=== PATIENT | female | born 2000 | race Caucasian/White ===

== ENCOUNTER 2021-02-23 15:56 | Emergency (ER) | payer OTHER, SELFPAY ==
[2021-02-23 16:34] VITALS: BP 117/70; PULSE 101; RESP 18; TEMP 37; O2SAT 100; BMI 26.9
[2021-02-23 16:58] LABS: Appearance Urine HAZY; Color Urine YELLOW; Glucose Urine UA NEG (NEG); Leukocyte Esterase Urine 1+ (NEG); Nitrite Urine NEG (NEG); PH 6.5 (5.0-8.0); UACC Culture Trigger YES; Urine Blood NEG (NEG); Urine Ketones NEG (NEG); Urine Protein NEG (NEG-TRACE)
[2021-02-23 16:59] LABS: UPreg QC Valid YES; Urine Pregnancy NEGATIVE (NEGATIVE)
[2021-02-23 17:03] LABS: Amorphous Sediment Urine TRACE /LPF; Mucus Urine 1+ /LPF; Renal Epithelial Cells Urine 1+ /LPF; Squamous Epithelial Cell Urine 2+ /LPF
[2021-02-23 17:04] LABS: Bacteria Urine TRACE /LPF; RBC Urine 0 /HPF (0)
--- NOTE | 2021-02-23 17:25 | ED.BACK ---
HPI - Back Pain/Injury General Chief Complaint: Back Pain/Injury Stated Complaint: lower back pain Time Seen by Provider: 02/23/21 17:25 Related Data Allergies Allergy/AdvReac Type Severity Reaction Status Date / Time No Known Allergies Allergy Verified 02/23/21 16:33 Review of Systems Review of Systems: Constitutional : No Weight loss, No Fever, No Chills, No Night Sweats, No Fatigue, No Malaise ENT/Mouth : No Hearing loss, No Ear Pain, No Nasal Congestion, No Sinus Pain, No Hoarseness, No sore throat, No Rhinorrhea, No Swallowing Difficulty Eyes: No Eye Pain, No Swelling, No Redness, No Foreign Body, No Discharge, No Vision Changes Cardiovascular : No Chest Pain, No SOB, No Dyspnea on Exertion, No Orthopnea, No Edema, No Palpitations Respiratory : No Cough, No Sputum, No Wheezing, No Smoke Exposure, No Dyspnea Gastrointestinal : No Nausea, No Vomiting, No Diarrhea, No Constipation, No abdominal Pain, No Hematochezia, No Melena Genitourinary : no irregular bleeding, No Dysuria, No Urinary Frequency, No Hematuria, No Urinary Incontinence, No Urgency, No Flank Pain, No Urinary Flow Changes, No Hesitancy Musculoskeletal : No joint pain, Myalgias, No Joint Swelling Skin : No Skin Lesions, No rash Neuro : No Weakness, No Numbness, No Paresthesias, No Loss of Consciousness, No Dizziness, No Headache Psych : No Anxiety/Panic, No Depression, No SI/HI/AH/VH, No Social Issues, Yes all other systems are reviewed and are negative COUNT INCLUDES [facility] Social History Social History Patient : No Physical Exam Vital Signs: Vital Signs: Last Vital Signs Temp 98.6 F 02/23/21 16:34 Pulse 101 H 02/23/21 16:34 Resp 18 02/23/21 16:34 BP 117/70 02/23/21 16:34 Pulse Ox 100 02/23/21 16:34 Body Mass Index 26.9 MDM - Back Pain/Injury Lab Data Labs: Lab Results 02/23/21 02/23/21 Range/Units 16:50 16:50 Urine Color YELLOW Urine Appearance HAZY Urine pH 6.5 (5.0-8.0) Ur Specific [place] 1.010 (1.005-1.025) Urine Protein NEG (NEG-TRACE) MG/DL Urine Glucose (UA) NEG (NEG) MG/DL Urine Ketones NEG (NEG) MG/DL Urine Blood NEG (NEG) Urine Nitrite NEG (NEG) Ur Leukocyte Esterase 1+ H (NEG) Urine RBC 0 (0) /HPF Urine WBC 5-9 H (0-4) /HPF Ur Squamous Epith Cells 2+ /LPF Ur Renal Epithelial Cell 1+ /LPF Amorphous Sediment TRACE /LPF Urine Bacteria TRACE /LPF Urine Mucus 1+ /LPF Urine Test NEGATIVE (NEGATIVE)
--- NOTE | 2021-02-23 18:07 | ED_ITS ---
HPI - Skin/Abscess/Foreign Bdy General Chief complaint: Back Pain/Injury Stated complaint: lower back pain Time Seen by Provider: 02/23/21 17:25 Source: patient Mode of arrival: ambulatory Limitations: no limitations History of Present Illness HPI narrative: Patient complaining of pain in the lower back for last 2 days with slight swelling no fever no chills no history of trauma no significant pain when she moves her bowels no urinary complaints no abdominal complaints Related Data Previous Rx's Medication Instructions Recorded cephalexin 500 mg capsule 500 mg PO QID 10 Days #40 cap 02/23/21 doxycycline hyclate 100 mg tablet 100 mg PO BID #20 tab 02/23/21 ibuprofen 600 mg tablet 600 mg PO Q6H PRN #20 tab 02/23/21 Allergies Allergy/AdvReac Type Severity Reaction Status Date / Time No Known Allergies Allergy Verified 02/23/21 16:33 Review of Systems Review of Systems: Yes all other systems are reviewed and are negative [facility] Social History Social History Advance Directives: No Advance Directives Information Provided: No Patient : No Physical Exam Vital Signs: Vital Signs: Last Vital Signs Temp 98.6 F 02/23/21 16:34 Pulse 101 H 02/23/21 16:34 Resp 18 02/23/21 16:34 BP 117/70 02/23/21 16:34 Pulse Ox 100 02/23/21 16:34 Body Mass Index 26.9 Const: General: comfortable, no acute distress and anxious Back/Spine/Pelvis: Thoracic/Lumbar Spine: No thoracic spinal tenderness and No lumbar spinal tenderness Skin: Full body images: 1. Tender fluctuant area with slight erythema MDM - Skin/Abscess/Foreign Bdy Lab Data Labs: Lab Results 02/23/21 02/23/21 Range/Units 16:50 16:50 Urine Color YELLOW Urine Appearance HAZY Urine pH 6.5 (5.0-8.0) Ur Specific [place] 1.010 (1.005-1.025) Urine Protein NEG (NEG-TRACE) MG/DL Urine Glucose (UA) NEG (NEG) MG/DL Urine Ketones NEG (NEG) MG/DL Urine Blood NEG (NEG) Urine Nitrite NEG (NEG) Ur Leukocyte Esterase 1+ H (NEG) Urine RBC 0 (0) /HPF Urine WBC 5-9 H (0-4) /HPF Ur Squamous Epith Cells 2+ /LPF Ur Renal Epithelial Cell 1+ /LPF Amorphous Sediment TRACE /LPF Urine Bacteria TRACE /LPF Urine Mucus 1+ /LPF Urine Test NEGATIVE (NEGATIVE) Procedures Abscess I/D Site: alexsander-rectal (Pilonidal cyst) Local Anesthetic: lidocaine 2% Amount of anesthesia used (mL): 5 Technique: incised with blade Amount of fluid expressed (mL): 4 Sent for culture/gram staining?: No Irrigation: No Packing used?: iodoform Discharge Plan Discharge Clinical Impression: Pilonidal abscess of cleft Patient Disposition: Home, Self-Care Instructions: Pilonidal Cyst (ED), Abscess Follow-up (ED) Additional Instructions: Local care as advised Packing removal in 2 days Take antibiotic as prescribed Follow the PCP of any concern prema vail PCP ra maurer Prescriptions: New cephalexin 500 mg capsule 500 mg PO QID 10 Days Qty: 40 RF: 0 ibuprofen 600 mg tablet 600 mg PO Q6H PRN (Reason: pain) Qty: 20 RF: 0 doxycycline hyclate 100 mg tablet 100 mg PO BID Qty: 20 RF: 0
[2021-02-23] MEDS: Lidocaine HCl 2 % MPF 5 ML VIAL INFILTRATI (18:23)
[2021-02-23] MEDS: cephALEXin 500 MG CAPSULE PO (18:23)
[2021-02-23] MEDS: Ketorolac Tromethamine 60 MG/2 ML VIAL IM (18:24)
== END 2021-02-23 18:36 | disposition home or self-care (01) ==
PROVIDERS: Emergency Provider Internal Medicine; PCP Internal Medicine
DX: K61.1 Rectal abscess (principal); M54.50 Low back pain, unspecified; Z79.899 Other long term (current) drug therapy
CPT/HCPCS: 10080; 81001; 81025; 87086; 96372; 99283; 99284; J1885

== ENCOUNTER 2021-02-25 16:05 | Emergency (ER) | payer OTHER, SELFPAY ==
[2021-02-25 17:19] VITALS: BP 112/75; PULSE 100; RESP 19; TEMP 36.8; O2SAT 99; BMI 26.9
--- NOTE | 2021-02-25 21:00 | ECG_ITS ---
Test Reason : dizzyness Blood Pressure : / mmHG Vent. Rate : 088 BPM Atrial Rate : 088 BPM P-R Int : 130 ms QRS Dur : 078 ms QT Int : 368 ms P-R-T Axes : 038 018 011 degrees QTc Int : 445 ms Normal sinus rhythm with sinus arrhythmia Normal ECG No previous ECGs available Referred By: Sarahy Sher Electronically Signed By:FORTINO SUMNER MD
--- NOTE | 2021-02-25 21:00 | ED.SYNCOPE ---
HPI - Syncope General Chief Complaint: Dizziness Stated Complaint: low back pain post surgery band removal Time Seen by Provider: 02/25/21 20:42 Source: patient Mode of arrival: ambulatory Limitations: no limitations History of Present Illness MD complaint: felt faint and almost passed out Onset (ago): day(s) (2) -: second(s) Prodromal symptoms: vision changes and lightheaded Witnessed: No Context: after urination, standing up, new medication and recent illness (just treated for pilonidal cyst) Injuries sustained associated with event: none Current symptoms: back to baseline Treatments prior to arrival: other (has been on abx s/p pilonidal cyst and packing I/D on 02/23 also was told to remove it today at home and felt dizzy and weak could not remove it) Related Data Previous Rx's Medication Instructions Recorded cephalexin 500 mg capsule 500 mg PO QID 10 Days #40 cap 02/23/21 doxycycline hyclate 100 mg tablet 100 mg PO BID #20 tab 02/23/21 ibuprofen 600 mg tablet 600 mg PO Q6H PRN #20 tab 02/23/21 Allergies Allergy/AdvReac Type Severity Reaction Status Date / Time No Known Allergies Allergy Verified 02/25/21 17:18 Review of Systems Review of Systems: Constitutional : No Fever, No Chills ENT/Mouth : No sore throat, No Rhinorrhea Eyes: No Eye Pain, No Swelling, No Redness Cardiovascular : No Chest Pain, No SOB Respiratory : No Cough, No Sputum, No Wheezing Gastrointestinal : No Nausea, No Vomiting, No Diarrhea Genitourinary : No Dysuria, No Urinary Frequency, No Hematuria, Musculoskeletal : No joint pain, No Myalgias, No Joint Swelling Skin : pos Skin Lesion, No rash Neuro : No Weakness, No Numbness, pos intermittent Dizziness, No Headache Psych : No Anxiety/Panic, No Depression All other systems reviewed and are negative COUNT INCLUDES [facility] Past Medical History Attestation statement: The following information was validated with the patient. Medical History Pilonidal cyst Social History Social History (Updated 02/25/21 @ 21:09 by Sarahy Sher DO) Patient Tobacco Use Status: Never used Tobacco Advance Directives: No Advance Directives Information Provided: Yes Patient : No Physical Exam Vital Signs: Vital Signs: Last Vital Signs Temp 98.2 F 02/25/21 17:19 Pulse 100 02/25/21 17:19 Resp 19 02/25/21 17:19 BP 112/75 02/25/21 17:19 Pulse Ox 99 02/25/21 17:19 Body Mass Index 26.9 Appearance: Alert. Oriented X3. No acute distress. Eyes: Pupils equal, round and reactive to light. ENT: Pharynx normal. Neck: Normal inspection. Neck supple. CVS: Normal heart rate and rhythm. Pulses normal. Respiratory: No respiratory distress. Breath sounds normal. Abdomen: Soft and nontender. Buttocks: removal of packing and then expressed about 5cc of drainage no large mass felt, no cellulitis seen tolerated well no issues Skin: Skin warm and dry. Normal skin color. Normal skin turgor. Extremities: No lower extremity edema. No calf ttp Neuro: Oriented X 3. No motor deficit. No sensory deficit. MDM - Syncope MDM Narrative Medical decision making narrative: 20 yo female with recent pilonidal cyst who is due for packing removal c/o getting up to urinate on Thursday and felt near syncopal that resolved then today she tried to remove the packing on her home and felt dizzy and weak again like she might faint - at this time will obtain EKG, suspect vasovagal, VS stable, packing removed without issue ECG Data Attestation: I personally reviewed and interpreted this ECG as follows: ECG interpretation date: 02/25/21 ECG interpretation time: 21:15 Interpretation: Rate: 88 Rhythm: NSR [place]: normal Normal P waves. Normal SAMANTHA. Normal QRS complex. ST T wave : normal no MAYA qTC: normal prior studies: no acute ischemia The study has been interpreted contemporaneously by me. . Discharge Plan Discharge Clinical Impression: Near syncope, Abscess packing removal Patient Disposition: Home, Self-Care Instructions: Near Syncope (ED), Pilonidal Cyst (ED) Additional Instructions: return to ED for any worsening symptoms or concerns area will still drain continue your antibiotics Prescriptions: No Action cephalexin 500 mg capsule 500 mg PO QID 10 Days Qty: 40 RF: 0 ibuprofen 600 mg tablet 600 mg PO Q6H PRN (Reason: pain) Qty: 20 RF: 0 doxycycline hyclate 100 mg tablet 100 mg PO BID Qty: 20 RF: 0 Stand Alone Forms: Work/School Release
--- NOTE | 2021-02-25 21:03 | PC.NURSE ---
Pt alert and oriented x4, calm and cooperative. Pt states pain at buttock cyst site. Pt denies dizziness at this time. Packing at cyst site removed by MD Sher with RN present. Pt tolerated removal well, stated pain with removal but denies pain at this time. Site noted to have minimal drainage. Pt having EKG done at this time.
[2021-02-25 21:19] VITALS: BP 115/64; PULSE 84; RESP 16; TEMP 36.9; O2SAT 98
== END 2021-02-25 21:19 | disposition home or self-care (01) ==
PROVIDERS: Emergency Provider Emergency Medicine
DX: R55 Syncope and collapse (principal); Z48.00 Encounter for change or removal of nonsurgical wound dressing
CPT/HCPCS: 93005; 99283; 99284

== ENCOUNTER → 2022-09-11 12:39 | Outpatient (BNVA) | payer MEDICAID, SELFPAY | PROVIDERS: PCP Nurse Practitioner Family; Visit Provider Dietitian, Registered | DX: K51.90 Ulcerative colitis, unspecified, without complications (principal) | CPT/HCPCS: 97802 ==

== ENCOUNTER 2025-01-21 19:44 | Emergency (ER) | payer OTHER, SELFPAY ==
[2025-01-21 20:02] VITALS: BP 138/64; PULSE 80; RESP 18; TEMP 36.6; O2SAT 97; BMI 26.1
--- NOTE | 2025-01-21 20:04 | ED_ITS ---
HPI - General Adult General Chief complaint: Skin/Abscess/Foreign Body Stated complaint: left thigh abscess Time Seen by Provider: 01/21/25 20:42 Source: patient Limitations: no limitations History of Present Illness ED Provider: Kat Chaves PA-C HPI narrative: 24-year-old female presents with suspect left thigh abscess. Patient states she has had a swelling with an inner medial thigh for the past 6 months. Over the past 3 days, it has become tender to palpation, has increased in size, she has developed overlying erythema and warmth. No drainage from the site, denies fever. Related Data Previous Rx's ?Medication ?Instructions ?Recorded cephalexin 500 mg capsule 500 mg PO QID 10 days #40 ca ps 02/23/21 doxycycline hyclate 100 mg tablet 100 mg PO BID #20 ta bs 02/23/21 ibuprofen 600 mg tablet 600 mg PO Q6H PRN pain #20 t abs 02/23/21 doxycycline hyclate 100 mg capsule 100 mg PO BID #13 c aps 01/22/25 Allergies Allergy/AdvReac Type Severity Reaction Status Date / Time No Known Allergies Allergy Verified 01/21/25 20:03 Review of Systems Review of Systems: Yes all other systems are reviewed and are negative Constitutional: Constitutional: Denies fatigue and Denies fever(s) Integumentary/Breasts: Skin/Breast: Reports erythema, Reports skin swelling and Denies wounds Endocrine: Endocrine: Denies fatigue PMFSH Past Medical History Attestation statement: The following information was validated with the patient. Medical History Pilonidal cyst Social History Social History (Updated 02/25/21 @ 21:09 by Pamela Sher DO) Patient Tobacco Use Status: Never used Tobacco Smoked in Last 30 Days: No Use of substances other than those prescribed or required for medical reasons: No Advance Directives: No Advance Directives Information Provided: No Do you have a plan to hurt others: No Plan Physical Exam ED Vital Signs: Vital Signs - 24 hr 01/21/25 20:02 01/22/25 00:44 Temperature 97.8 F 97.7 F Pulse Rate 80 82 Respiratory Rate 18 18 Blood Pressure 138/64 102/62 Pulse Oximetry 97 99 Oxygen Delivery Method Room Air Room Air BMI result Body Mass Index 26.1 Const Other: Alert well-appearing Orientation/consciousness: patient oriented x3 Resp Effort & Inspection: normal respiratory effort Cardio Other: Normal peripheral perfusion Skin Other: Warm dry no rash Neuro General: patient oriented x3, gait normal, no focal motor deficits and CN's II- XI intact bilaterally Extrem Other: Tender swelling medial inner left thigh, overlying erythema, central fluctuance, Psych Other: Cooperative Course Course Course Narrative: This is a Rapid Medical Examination (RME) performed by Pricila Veloz PA-C in triage. Full HPI, ROS, assessment and treatment plan per primary provider in the Main ED. Hx: 24 yo F here with concerns of abscess to L inner thigh. reports noticing a painless bump to her upper left thigh 6 mo ago - did not seek medical attention at that time. now the area has become warm, red and painful. no drainage. no fever/chills. PE/vitals: Area not visualized in triage Plan: Further eval and back, likely I&D Medications Administered Discontinued Medications Generic Name Dose Route Start Last Admin Trade Name Gaetanoq PRN Reason Stop Dose Admin Doxycycline Monohydrate 100 mg 01/21/25 22:09 01/21/25 22:35 Doxycycline Monohydrate 100 Mg Capsule PO 01/21/25 22:10 100 mg ONCE ONE Administration Lidocaine/Epinephrine 10 ml 01/21/25 22:09 01/21/25 22:35 Lidocaine Hcl 1%/Epi 1:100,000 10 Ml Vial INFILTRATI 01/21/25 22:10 10 ml ONCE ONE Administration Lidocaine/Epinephrine/Tetracaine 3 ml 01/21/25 22:35 01/21/25 22:39 Lidocaine/Racepinep/Tetracaine 3 Ml Gel.Pf.Sailaja TOPICAL 01/21/25 22:36 3 ml ONCE ONE Administration Procedures Abscess I/D Site: lower extremity Side (if applicable): left Sedation/analgesia: none Local Anesthetic: lidocaine 1%, with epi and other anesthetic (let) Amount of anesthesia used (mL): 3 Technique: incised with blade Amount of fluid expressed (mL): 10 Sent for culture/gram staining?: No Irrigation: Yes Packing used?: iodoform Medical Decision Making Medical Decision Making MDM Narrative: 24-year-old female presents with suspect left thigh abscess. Patient states she has had a swelling with an inner medial thigh for the past 6 months. Over the past 3 days, it has become tender to palpation, has increased in size, she has developed overlying erythema and warmth. No drainage from the site, denies fever. No relevant chronic issues History: Per patient I have considered the following differential diagnoses: Cellulitis, purulent cellulitis, abscess, infected skin cyst , folliculitis Plan: The patient has formed an abscess of a cyst, we will I and D at bedside. I did view with the ultrasound, it is well circumscribed, consistent with a cyst. I did discuss with the patient that it may recur, that in ordered to prevent recurrence, a require surgical removal. No indication for labs or imaging Differential Diagnosis Differential Diagnoses: The differential diagnosis associated with the presentation includes See medical decision-making Admission/Observation Consideration of admission/observation: Escalation of care including admission/observation considered Not applicable Discharge Plan Discharge Clinical Impression: Infected cyst of skin Patient Disposition: Home, Self-Care Instructions: Cellulitis (ED), Cyst (ED) Additional Instructions: You had a skin cyst that became infected. It was drained at bedside. Take the doxycycline as directed. There was a drain within the cyst, in 2 days, allow hot water to run over the site, then remove the drain. Keep the area clean and dry. Contact your surgeon to discuss elective removal of the cyst. Prescriptions: New doxycycline hyclate 100 mg capsule 100 mg PO BID Qty: 13 0RF No Action cephalexin 500 mg capsule 500 mg PO QID 10 Days Qty: 40 0RF ibuprofen 600 mg tablet 600 mg PO Q6H PRN (Reason: pain) Qty: 20 0RF doxycycline hyclate 100 mg tablet 100 mg PO BID Qty: 20 0RF Referrals: Rock Sheppard MD [Physician, General Surgery] Referral Note: skin cyst, wants removal Stand Alone Forms: Work/School Release Interventions: ED Discharge Assessment Last Done: 01/22/25 00:51 Discharge Date/Time: 01/22/25 00:52 Print Language: Nauruan
--- OUTSIDE RECORDS SUMMARY | 2025-01-21 20:51 | XMS_ITS | Clinical Summary ---
Author Organization 175 [facility] Address [address] [place] [address] Phone Care Team Providers Care Loader Helper Name Role Phone Erik Davidson MD Primary Care Provider [phone] Allergies No known active allergies Medications lactulose (CHRONULAC) solution Take 30 mL (20 g total) by mouth. 01/15/20 23 Active famotidine (PEPCID) 20 mg tablet Take 1 tablet (20 mg total) by mouth 2 (two) times a day. 03/18/20 21 Active linaCLOtide (LINZESS) 72 mcg capsule Take 1 capsule (72 mcg total) by mouth 1 (one) time each day. Active predniSONE (DELTASONE) 10 mg tabletIndications:c olitid Please take 4 pills of prednisone for 5 days, then take 3 pills of prednisone for 5 days, then take 2 pills of prednisone for 5 days, then took 1 pill of prednisone for 5 days, then take half a pill of prednisone for 5 days 60 tablet 1 07/15/19 25 Active Additional Information Patient not taking.Reported on 12/07/2024 azaTHIOprine (IMURAN) 50 mg tablet Take 1 tablet (50 mg total) by mouth 2 (two) times a day. 180 tablet 3 12/08/19 25 Active mesalamine (LIALDA) 1.2 gram EC tabletIndications:N oninfective gastroenteritis and colitis, unspecified Take 1 tablet (1.2 g total) by mouth 2 (two) times a day. 180 tablet 3 12/08/19 25 Active simethicone 250 mg capsule Take 1 capsule by mouth 4 (four) times a day if needed (bloating, gas). 120 capsule 3 12/08/19 Active Encounters Date Type Department Care Team Description 12/08/2024 9:00 AM EDT Lab Draw Station - 299 [facility] [address] [place] [phone] Noninfective gastroenteritis and colitis, unspecified; Other ulcerative colitis without complication ([facility] V24, [facility] V28); Acute pain of both knees 12/08/2024 8:32 AM EDT - 12/08/2024 11:59 PM EDT Hospital Encounter [facility] [address] [place] [phone] Noninfective gastroenteritis and colitis, unspecified; Other ulcerative colitis without complication ([facility] V24, [facility] V28); Acute pain of both knees Discharge Disposition: Home or Self Care 12/07/2024 9:10 AM EDT Office Visit Gastroenterology [facility] 175 [facility] [address] [phone] Lacey Santamaria PA Other ulcerative colitis without complication ([facility] V24, [facility] V28) (Primary Dx); Noninfective gastroenteritis and colitis, unspecified; Acute pain of both knees 12/07/2024 Telephone Gastroenterology - [place] 175 [facility] [address] [phone] Vero Carpenter MA from Last 3 Months Immunizations Immunization Administration Dates Next Due HPV, Quadrivalent 01/27/2020,02/28/2019,01/21/20 19 Influenza, Unspecified 02/04/2022,01/27/2020,01/2019 [employer] SARS-CoV-2 COVID -19, vector-nr, rS-Ad26, preservative free 08/30/2020 MMR, measles mumps and rubel la Live (Priorix; M-M-R II) 12mo and older 02/28/2019,01/20/2019 Meningococcal Polysaccharide 08/26/2017 Tdap Tetanus diptheria acell ular pertussis (Boostrix; Adacel) 7yo and older 08/26/2017 Surgical History Surgery Date Site/Laterality Comments COLONOSCOPY 04/03/2020 PROCEDURE: HISTORICAL COLONOSCOPY; COMMENT: mild rectosigmoid colitis - consistent with UC Social History Tobacco Use Types Packs/Day Years Used Date Smoking Tobacco: Never Assessed Comments Unknown Sex and Gender Information Value Date Recorded Sex Assigned at Female 07/22/2024 10:36 AM EDT Legal Sex Female 10:21 AM EST Gender Identity Female 07/22/2024 10:36 AM EDT Sexual Orientation Choose not to disclose 2024 10:36 AM EDT Obstetrics History Last Filed Vital Signs Vital Sign Reading Time Taken Comments Blood Pressure 106/70 12/07/2024 9:10 AM EDT Pulse 87 01/19/2024 1:35 PM EDT Temperature - - Respiratory Rate - - Oxygen Saturation - - Inhaled Oxygen Concentration - - Weight 68.5 kg (151 lb) 12/07/2024 9:10 AM EDT Height 157.5 cm (5' 2 ) 12/07/2024 9:10 AM EDT Body Mass Index 27.62 12/07/2024 9:10 AM EDT Plan of Treatment Upcoming Encounters Date Type Department Care Team (Late st Contact Info) Description 03/29/2025 2:20 PM EST Office Visit Gastroenterology - [place] [address] [place] [address] [facility] [address] [place] [address] Lacey Santamaria PA [address] [facility] [address] [place] [address] Health Maintenance Due Date Last Done Comments Hepatitis B Vaccines (1 of 3 - 19+ 3-dose series) 2018 Pneumococcal Vaccine: Pediatrics (0 to 5 Years) and At-Risk Patients (6 to 49 Years) (1 of 2 - PCV) 2018 Cervical Cancer Screening: Pap Smear 2020 COVID-19 Vaccine (2 - Ye risk series) 09/27/2020 08/30/2020 HIV Screening 03/11/2022 Social Influencers of Health Screening 03/11/2022 Depression Screening 04/13/2024 Influenza Vaccine (#1) 2024 , 12/31/2022, 02/04/2022, Additional history exists DTaP,Tdap,and Td Vaccines (2 - Td or Tdap) 08/27/2027 08/26/2017 Cholesterol Screening (Lipid Panel) 03/29/2029 03/29/2024, 02/04/2022 RSV Immunization Adult Patients (1 - 1-dose 75+ series) 2074 Meningococcal ACWY Vaccine Aged Out 08/26/2017 N o longer eligible based on patient's age to complete this topic MMR Vaccines Aged Out 02/28/2019, 01/20/2019 No lo nger eligible based on patient's age to complete this topic HPV Vaccines Completed 01/27/2020, 02/11, 01/20/2019 Hepatitis C Screening Completed 02/04/2022 HIB Vaccines Aged Out No longer eligi ble based on patient's age to complete this topic Hepatitis A Vaccines Aged Out No long er eligible based on patient's age to complete this topic IPV Vaccines Aged Out No longer eligi ble based on patient's age to complete this topic Meningococcal B Vaccine Aged Out No l onger eligible based on patient's age to complete this topic RSV Immunization Patients Under 20 months Aged Out No longer eligible based on patient's age to complete this topic Varicella Vaccines Aged Out No longer eligible based on patient's age to complete this topic Procedures Procedure Name Priority Date/Time Associated Diagnosis Comments CBC WITH AUTO DIFFERENTIAL Routine 12/08/2024 8:58 AM EDT Noninfective gastroenteritis and colitis, unspecified Other ulcerative colitis without complication (CMS/HCC V24, CMS/HCC V28) Acute pain of both knees CBC AND DIFFERENTIAL Routine 12/08/2024 8:58 AM EDT Noninfective gastroenteritis and colitis, unspecified Other ulcerative colitis without complication (CMS/HCC V24, CMS/HCC V28) Acute pain of both knees COMPREHENSIVE METABOLIC PANEL Routine 12/08/2024 8:58 AM EDT Noninfective gastroenteritis and colitis, unspecified Other ulcerative colitis without complication (CMS/HCC V24, CMS/HCC V28) Acute pain of both knees VITAMIN D 25 HYDROXY Routine 12/08/2024 8:58 AM EDT Noninfective gastroenteritis and colitis, unspecified Other ulcerative colitis without complication (CMS/HCC V24, CMS/HCC V28) Acute pain of both knees C-REACTIVE PROTEIN Routine 12/08/2024 8: 58 AM EDT Noninfective gastroenteritis and colitis, unspecified Other ulcerative colitis without complication ([facility] V24, [facility] V28) Acute pain of both knees XR KNEE 4+ VIEWS BILAT Routine 12/08/2024 8:44 AM EDT Noninfective gastroenteritis and colitis, unspecified Other ulcerative colitis without complication ([facility] V24, [facility] V28) Acute pain of both knees from Last 3 Months Results * (ABNORMAL) CBC auto differential (12/08/2024 8:58 AM EDT) WBC 5.9 4.8 - 10.8 K/mcL LAB HEMETOLOGY METHOD 12/08/2024 9:34 AM [facility] RBC 5.00(H) 3.80 - 4.80 M/mcL LAB HEMETOLOGY METHOD 12/08/2024 9:34 AM [facility] Hemoglobin 14.5 11.5 - 16.0 g/dL LAB HEMETOLOGY METHOD 12/08/2024 9:34 AM [facility] Hematocrit 42.2 35.0 - 47.0 % LAB HEMETOLOGY METHOD 12/08/2024 9:34 AM [facility] MCV 83.7 79.0 - 98.0 FL LAB HEMETOLOGY METHOD 12/08/2024 9:34 AM [facility] MCH 28.8 27.0 - 32.0 pcg LAB HEMETOLOGY METHOD 12/08/2024 9:34 AM [facility] MCHC 34.4 32.0 - 37.0 g/dL LAB HEMETOLOGY METHOD 12/08/2024 9:34 AM [facility] RDW 12.8 11.0 - 15.0 % LAB HEMETOLOGY METHOD 12/08/2024 9:34 AM [facility] Platelets 198 130 - 400 K/mcL LAB HEMETOLOGY METHOD 12/08/2024 9:34 AM [facility] MPV 11.2(H) 7.0 - 11.0 FL LAB HEMETOLOGY METHOD 12/08/2024 9:34 AM [facility] NRBC 0.0 <1.0 % LAB HEMETOLOGY METHOD 12/08/2024 9:34 AM [facility] NRBC Absolute 0.00 <0.10 K/mcL LAB HEMETOLOGY METHOD 12/08/2024 9:34 AM [facility] Neutrophils Relative 60.3 % LAB HEMETOLOGY METHOD 12/08/2024 9:34 AM [facility] Lymphocytes Relative 30.0 % LAB HEMETOLOGY METHOD 12/08/2024 9:34 AM [facility] Monocytes Relative 8.2 % LAB HEMETOLOGY METHOD 12/08/2024 9:34 AM [facility] Eosinophils Relative 0.5 % LAB HEMETOLOGY METHOD 12/08/2024 9:34 AM [facility] Basophils Relative 0.7 % LAB HEMETOLOGY METHOD 12/08/2024 9:34 AM [facility] Immature Granulocytes Relative 0.3 % LAB HEMETOLOGY METHOD 12/08/2024 9:34 AM [facility] Neutrophils Absolute 3.53 1.50 - 7.00 K/mcL LAB HEMETOLOGY METHOD 12/08/2024 9:34 AM [facility] Lymphocytes Absolute 1.76 1.00 - 5.00 K/mcL LAB HEMETOLOGY METHOD 12/08/2024 9:34 AM [facility] Monocytes Absolute 0.48 0.20 - 1.00 K/mcL LAB HEMETOLOGY METHOD 12/08/2024 9:34 AM EDT [facility] Eosinophils Absolute 0.03 0.00 - 0.50 K/[facility] LAB HEMETOLOGY METHOD 12/08/2024 9:34 AM EDT [facility] Basophils Absolute 0.04 0.00 - 0.20 K/mcL LAB HEMETOLOGY METHOD 12/08/2024 9:34 AM EDT [facility] Immature Granulocytes Absolute 0.02 0.00 - 0.03 K/mcL LAB HEMETOLOGY METHOD 12/08/2024 9:34 AM EDT [facility] Blood Venous blood specimen / Unknown Venipuncture / Unknown 12/08/2024 8:58 AM EDT 12/08/2024 9:27 AM EDT Lacey COLINDRES LAB BLOOD ORDERABLES Final Re sult [facility] [address] [place] [address], [place] [phone] * Vitamin D 25 hydroxy (12/08/2024 8:58 AM EDT) Vit D, 25-Hydroxy 34.0 30.0 - 80.0 ng/mL LAB CHEMISTRY METHOD 12/08/2024 11:24 AM EDT [facility] Blood Venous blood specimen / Unknown Venipuncture / Unknown 12/08/2024 8:58 AM EDT 12/08/2024 9:27 AM EDT us Lacey COLINDRES LAB BLOOD ORDERABLES Final Re sult [facility] [address] [place] [address], [place] [phone] * C-reactive protein (12/08/2024 8:58 AM EDT) [facility] C-Reactive Protein <0.29 <=0.50 mg/dL LAB CHEMISTRY METHOD 12/08/2024 10:19 AM [facility] Blood Venous blood specimen / Unknown Venipuncture / Unknown 12/08/2024 8:58 AM EDT 12/08/2024 9:27 AM EDT us Lacey COLINDRES LAB BLOOD ORDERABLES Final Re sult [facility] [address] [place] [address], * Comprehensive metabolic panel (12/08/2024 8:58 AM EDT) [facility] Sodium 137 133 - 145 mmol/L LAB CHEMISTRY METHOD 12/08/2024 10:46 AM [facility] Potassium 4.1 3.5 - 5.5 mmol/L LAB CHEMISTRY METHOD 12/08/2024 10:46 AM [facility] Chloride 105 96 - 110 mmol/L LAB CHEMISTRY METHOD 12/08/2024 10:46 AM [facility] CO2 27 21 - 32 mmol/L LAB CHEMISTRY METHOD 12/08/2024 10:46 AM [facility] Anion Gap 5 3 - 11 LAB CHEMISTRY METHOD 12/08/2024 10:46 AM [facility] Glucose 90 70 - 100 mg/dL LAB CHEMISTRY METHOD 12/08/2024 10:46 AM [facility] BUN 12 5 - 25 mg/dL LAB CHEMISTRY METHOD 12/08/2024 10:46 AM [facility] Creatinine 0.71 0.50 - 1.10 mg/dL LAB CHEMISTRY METHOD 12/08/2024 10:46 AM [facility] eGFR 121 >=60 mL/min/1. 73m2 LAB CHEMISTRY METHOD 12/08/2024 10:46 AM [facility] Comment:Calculation based on the Chronic Kidney Disease Epidemiology Collaboration (CKD-EPI) equation refit without adjustment for race. BUN/Creatinine Ratio 16.9 LAB CHEMISTRY METHOD 12/08/2024 10:46 AM [facility] Calcium 9.3 8.5 - 10.5 mg/dL LAB CHEMISTRY METHOD 12/08/2024 10:46 AM [facility] AST (SGOT) 13 10 - 42 unit/L LAB CHEMISTRY METHOD 12/08/2024 10:46 AM [facility] ALT (SGPT) 21 10 - 60 unit/L LAB CHEMISTRY METHOD 12/08/2024 10:46 AM [facility] Alkaline Phosphatase 49 42 - 121 unit/L LAB CHEMISTRY METHOD 12/08/2024 10:46 AM [facility] Total Protein 7.1 6.0 - 8.0 g/dL LAB CHEMISTRY METHOD 12/08/2024 10:46 AM [facility] Albumin 4.4 3.2 - 5.0 g/dL LAB CHEMISTRY METHOD 12/08/2024 10:46 AM [facility] Total Bilirubin 0.8 0.0 - 1.4 mg/dL LAB CHEMISTRY METHOD 12/08/2024 10:46 AM [facility] Comment:Results verified by repeat testing Blood Venous blood specimen / Unknown Venipuncture / Unknown 12/08/2024 8:58 AM EDT 12/08/2024 9:27 AM EDT us Lacey COLINDRES LAB BLOOD ORDERABLES Final Re sult [facility] [address] [place] [address], * XR Knee 4+ Views bilat (12/08/2024 8:44 AM EDT) Anatomical Region Laterality Modality Lower Extremities, Knee Bilateral [facility] 12/08/2024 8:48 AM EDT Impressions 12/08/2024 8:49 AM EDT Normal examination. Code 13013, 84809 -------- FINAL REPORT -------- Dictated By: Kota Feliz Dictated Date: 12/08/2024 08:48 ET Assigned Physician: Kota Feliz Reviewed and Electronically Signed By: Kota Feliz Signed Date: 12/08/2024 08:49 ET Workstation ID: [id number] Transcribed By: Self Edit Transcribed Date: 12/08/2024 08:48 ET Narrative 12/08/2024 8:49 AM EDT HISTORY: The patient is a 24-year-old female with bilateral knee pain for one month, nontraumatic. FINDINGS: Lateral, internal rotation, external rotation views of the right knee, lateral, internal rotation, and external rotation views of the left knee, and standing AP views of both knees are obtained. The study demonstrates no fracture, dislocation, arthritic change, or other bony abnormality. No joint effusion or other soft tissue abnormality is seen in either knee. Procedure Note Kota Feliz MD - 12/08/2024 HISTORY: The patient is a 24-year-old female with bilateral knee pain forone month, nontraumatic. FINDINGS: Lateral, internal rotation, external rotation views of the rightknee, lateral, internal rotation, and external rotation views of the leftknee, and standing AP views of both knees are obtained. The studydemonstrates no fracture, dislocation, arthritic change, or other bonyabnormality. No joint effusion or other soft tissue abnormality is seen ineither knee. IMPRESSION: Normal examination. Code 52592, 98557 -------- FINAL REPORT -------- Dictated By: Kota Feliz Dictated Date: 12/08/2024 08:48 ET Assigned Physician: Kota Feliz Reviewed and Electronically Signed By: Kota Feliz Signed Date: 12/08/2024 08:49 ET Workstation ID: [id number] Transcribed By: Self Edit Transcribed Date: 12/08/2024 08:48 ET Lacey COLINDRES IMG XR PROCEDURES Final Resul t from Last 3 Months Insurance [email or web address] [facility] Care Teams Loader Helper Relationship Specialty Start Date End Date Erik Davidson MD [address] [place] [phone] PCP - General Internal Medicine 03/16/18
--- OUTSIDE RECORDS SUMMARY | 2025-01-21 20:51 | XMS_ITS | Clinical Summary ---
Author Organization [facility] Address [address] [place] [address] Care Team Providers Care Patient Support Assistant Name Role Phone Ro Portilloor YOSVANY Primary Care Provider [phone] Source Comments PLEASE NOTE, if this patient is a minor, it may be UNLAWFUL to discuss sensitive information that is contained in these records (such as FAMILY PLANNING, MENTAL HEALTH or SUBSTANCE ABUSE) with the minor patient's parent or other person without the patient's specific authorization.[facility] Allergies No known active allergies Medications cholecalciferol , vitamin D3, (VITAMIN D3) 1,250 mcg (50,000 unit) capsule TAKE 1 CAPSULE BY MOUTH ONCE A WEEK 12 Capsule 5 3 Active mesalamine (LIALDA) 1.2 gram EC tablet 3 Active simethicone (GAS-X ULTRA) 180 mg capsule Take 1 Capsule by mouth every 6 (six) hours as needed for flatulence 45 Capsule 1 3 Active famotidine (PEPCID) 20 mg tabletIndicatio ns:History of colitis TAKE 1 TABLET BY MOUTH 2 TIMES DAILY NEEDED FOR HEARTBURN. 180 Tablet 1 4 Active azaTHIOprine (IMURAN) 50 mg tablet Take 50 mg by mouth twice a day 4 Active hydroquinone 4 % cream See Admin Instructions 4 Active ketoconazole (NIZORAL) 2 % shampooIndicati ons:Dandruff Apply topically once daily as needed for itching 240 mL 11 4 Active clobetasoL (CLOBEX) 0.05 % shampooIndicati ons:Dandruff Apply topically once daily as needed for rash 118 mL 5 4 Active chlorhexidine gluconate (HIBICLENS) 4 % external liquidIndicatio ns:Recurrent boils Apply topically once daily as needed (hidradenitis) 473 mL 5 5 Active Active Problems Problem Noted Date Diagnosed Date Elevated fecal calprotectin 06/03/2022 Overview (06/03/2022): May 2022: January [facility]22 [facility] History of colitis 05/23/2020 Overview (02/04/2022): Followed by GI at [facility] Chronic back pain 08/01/2017 Overview (08/01/2017): 07/22/17 - NEOS, Midline thoracic back pain 01/02/2015 Screening for other hemoglobinopathies 5 Overview (10/17/2014): Normal Adult Hemoglobin - Blood Test 10/09/14. GERD (gastroesophageal reflux disease) 4 Overview (10/03/2013): 02/27/12, - H.Pylori. Rx'ed Prilosec. Resolved Problems Problem Noted Date Diagnosed Date Resolved Date Elevated procalcitonin 06/03/202206/03 Acne vulgaris 01/02/2015 02/12/2023 Immunizations Immunization Administration Dates Next Due Flu, Preservative Free 12/31/2022,02/04/2022,,01/20/2019 HPV 9 (Gardasil) 01/27/2020,02/28/2019, 9 INFLUENZA, SEASONAL, INJECTABLE 12/19/2023 GRISELDA COVID-19 VACCINE 08/30/2020 MENINGOCOCCAL MCV4P (MENACTRA) 08/26/2017 MMR (MMR II/Priorix) 02/28/2019,01/20/2019 PPD 05/23/2020 TDAP 08/26/2017 Family History Medical History Relation Name Comments No Known Problems Brother 2 Depression Mother Other Mother GI issues low back pain, neck pain Mother mental health issues Mother Relation Name Status Comments Brother 2 Alive Daughter 0 Alive Father unknown Alive Mother Alive Son 0 Alive Social History Tobacco Use Types Packs/Day Years Used Date Smoking Tobacco: Never Passive Smoke Exposure: Never Smokeless Tobacco: Never Tobacco Cessation:Counseling Given: Not Answered Alcohol Use Standard Drinks/Week Comments No 0 (1 standard drink = 0.6 oz pur e alcohol) Social Connections Answer Date Recorded Connectedness 0 02/12/2023 Financial Resource Strain Answer Date R ecorded Financial Resource Strain 0 2022 Stress Answer Date Recorded Stress 0 02/12/2023 Physical Activity Answer Date Recorded Physical Activity 0 11/29/2018 Food Insecurity Answer Date Recorded Food 0 02/12/2023 Transportation Needs Answer Date Record ed Transportation 0 02/12/2023 Housing Stability Answer Date Recorded Housing 0 02/12/2023 Safety and Environment Answer Date Edgar rded How often does anyone, inclu ding family and friends, physically hurt you? 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, going to school for psych Not on file Not on file Not on file Last Filed Vital Signs Vital Sign Reading Time Taken Comments Blood Pressure 118/72 07/18/2024 2:39 PM EDT Pulse 68 07/18/2024 2:39 PM EDT Temperature 36.1 C (96.9 F) 03/29/2024 2:04 PM EST Respiratory Rate 16 03/29/2024 2:04 PM EST Oxygen Saturation 96% 03/29/2024 2:04 PM EST Inhaled Oxygen Concentration - - Weight 67.3 kg (148 lb 6.4 oz) 03/29/2024 2:04 P M EST Height 157.5 cm (5' 2 ) 03/29/2024 2:04 PM EST Body Mass Index 27.14 03/29/2024 2:04 PM EST Plan of Treatment Upcoming Encounters Date Type Department Care Team ([facility] st Contact Info) Description 02/16/2025 10:00 AM EST Office Visit [facility] [address] [place] [phone] Dean Portillo FNP [address], [place] [phone] 04/12/2025 10:20 AM EST Office Visit [facility] [address] [place] [phone] Elvin Stuart [address] [place], [place] [phone] Health Maintenance Due Date Last Done Comments Anxiety Screening 1999 HPV Screening 1999 Pap + HPV 1999 Imm-Pneumococcal (1 of 2 - PCV) 2018 Imm-Zoster, Recombinant (1 of 2) 2018 Cervical Cancer Screening 2020 Pap Smear 2020 [id number] (2 - Griselda ri sk series) 09/27/2020 08/30/2020 Alcohol and Drug Screen 04/13/2024 03/29/20 24, 06/03/2022, 05/23/2020, Additional history exists Depression Annual Screen 04/13/2024 03/29/2024, 08/11 Imm-Influenza (#1) 2024 12/19/2023, 0 12/31/2022, 02/04/2022, Additional history exists Annual Wellness (Adult): Indicated (All Coverage) 03/29/2025 03/29/2024, 02/12/2023, 02/04/2022, Additional history exists Relationship Safety Screening/Counseling 03/29/2025 03/29/2024, 02/12/2023, 01/27/2020, Additional history exists Hypertension Screening (#1) 07/18/2025 Tobacco Screening 07/18/2025 07/18/2024 Dental BW 07/20/2025 07/18/2024, 12/12, 06/19/2022, Additional history exists Dental Examination 07/20/2025 07/18/2024, 1 05/18/2022, 06/19/2022, Additional history exists Dental Perio Charting 07/20/2025 07/18/2024, 023 Dental Prophy 07/20/2025 07/18/2024, 12/12, 06/19/2022, Additional history exists Dental FMX/Pano 09/06/2026 09/04/2021 Imm-DTaP/Tdap/Td (2 - Td or Tdap) 08/27/2027 018 Imm-HPV Completed 01/27/2020, 02/11, 01/20/2019 HIV Screening Completed 02/04/2022, 01/20/2019 Hepatitis C Screening Completed 02/04/2022 Cervical Ablation/Cold-Knife Conization Discontinued Cervical Cryotherapy Discontinued Colposcopy Discontinued Endometrial Biopsy Discontinued Excision/Leep Discontinued HPV Genotyping Discontinued Imm-Hepatitis B Discontinued Vaginal Pap Discontinued Vulvoscopy Discontinued Procedures Procedure Name Priority Date/Time Associated Diagnosis Comments IMAGING SCANNED DOCUMENT 12/08/2024 3:00 AM EDT COMP PERIODONTAL EVALUATION - NEW/EST PATIENT Routine 07/18/2024 2:40 PM EDT Caries of dentin BITEWINGS - FOUR RADIOGRAPHIC IMAGES Routine 07/18/2024 2:40 PM EDT Caries of dentin PROPHYLAXIS - ADULT Routine 07/18/2024 2 :40 PM EDT Caries of dentin PERIODIC ORAL EVALUATION ESTABLISHED PATIENT Routine 07/18/2024 2:40 PM EDT Caries of dentin HIV 1/2 AG & AB W/RFLX (4TH GEN) Routine 02/04/2022 4:04 PM EDT Examination, medical, general HEPATITIS C AB W/RFLX HCV RNA, QT, RT PCR Routine 02/04/2022 4:04 PM EDT Examination, medical, general PANORAMIC RADIOGRAPHIC IMAGE Routine 09/04/2021 3:00 PM EDT Caries from Last 3 Months or Most Recently Relevant to Health Maintenance Results * IMAGING SCANNED DOCUMENT (12/08/2024 3:00 AM EDT) 12/08/2024 3:00 AM EDT us Erik Davidson MD SCAN IMAGING Final Result * HEPATITIS C AB W/RFLX HCV RNA, QT, RT PCR (02/04/2022 4:04 PM EDT) HEPATITIS C ANTIBODY NON-REACT MIKE NON-REACT MIKE ABT Molecular Imaging [facility] SIGNAL TO CUT-OFF 0.23 <1.00 [facility] Comment: HCV antibody was non-reactive. There is no laboratory evidence of HCV infection. In most cases, no further action is required. However, if recent HCV exposure is suspected, a test for HCV RNA (test code 53243) is suggested. For additional information please refer to [email or web address] (This link is being provided for informational/ educational purposes only.) Blood Blood / Unknown 02/04/2022 4 :04 PM EDT 02/04/2022 4:05 PM EDT Dean Portillo MORTGAGE OPERATIONS MANAGER LAB - BLOOD DRAW Edited R esult - Final Insportant [facility] [address] [address], [employer] [facility] [address] [address] * HIV 1/2 AG & AB W/RFLX (4TH GEN) (02/04/2022 4:04 PM EDT) Pathologist [facility] HIV AG/AB, 4TH GEN NON-REAC TIVE NON-REAC TIVE ABT Molecular Imaging [facility] Comment: HIV-1 antigen and HIV-1/HIV-2 antibodies were not detected. There is no laboratory evidence of HIV infection. PLEASE NOTE: This information has been disclosed to you from records whose confidentiality may be protected by state law. If your state requires such protection, then the state law prohibits you from making any further disclosure of the information without the specific written consent of the person to whom it pertains, or as otherwise permitted by law. A general authorization for the release of medical or other information is NOT sufficient for this purpose. For additional information please refer to [email or web address] (This link is being provided for informational/ educational purposes only.) The performance of this assay has not been clinically validated in patients less than 2 years old. Blood Blood / Unknown 02/04/2022 4 :04 PM EDT 02/04/2022 4:05 PM EDT Dean BAR LAB - BLOOD DRAW Final Re sult [facility] [address] [address], [facility] [address] [address] from Last 3 Months or Most Recently Relevant to Health Maintenance Insurance [facility] ([facility]) Member Subscriber Plan / Payer ( fective 2023-Present) Name:Cristi Ruizsha Relation to Subscriber:Self Name:Sara Libra Payer ID:[id number] Group ID:Not on file Type:AppsFunder Address: [address] [place] [address] [facility] Care Teams Patient Support Assistant Relationship Specialty Start Date End Date Dean Portillo FNP [address] [place] [address] PCP - General Family Medicine, [facility] 05/17/20
--- OUTSIDE RECORDS SUMMARY | 2025-01-21 20:51 | XMS_ITS | Clinical Summary ---
Author Organization [facility] Address [address] [place] [id number] Phone Care Team Providers Care [employer] Bi Developer Name Role Phone Pcp, Unknown Primary Care Provider Unavailabl e Allergies No known active allergies Medications famotidine (PEPCID) 20 MG tablet TAKE 1 TABLET BY MOUTH 2 TIMES DAILY NEEDED FOR HEARTBURN. 02/04/2022 Active amitriptyline (ELAVIL) 10 MG tablet Take 1 tablet by mouth nightly at bedtime. 02/04/2022 Active azaTHIOprine (IMURAN) 50 mg tablet Take 1 tablet by mouth 2 (two) times a day. 09/04/2023 Active cholecalciferol (VITAMIN D3) 50,000 unit capsule Take 1 capsule by mouth once a week. 08/06/2022 Active LIALDA 1.2 gram EC tablet Take 4.8 g by mouth daily with breakfast. Active simethicone (MYLICON,GAS-X) 180 mg capsule Take 180 mg by mouth every 6 (six) hours as needed. 02/12/2023 Active Social History Tobacco Use Types Packs/Day Years Used Date Smoking Tobacco: Never Smokeless Tobacco: Never Tobacco Cessation:Counseling Given: Not Answered Alcohol Use Standard Drinks/Week Comments Never 0 (1 standard drink = 0.6 oz pur e alcohol) Education Answer Date Recorded Are you interested in more education? Not on yoanna e 08/09/2022 Are you concerned about learning? Not on file 08/09/2022 No 08/09/2022 No 08/09/2022 Digital Access Answer Date Recorded No 09/06/2022 No 09/06/2022 Reliable internet access at home? Not on file 09/06/2022 Device with a working camera? Not on file Comments Unknown Sex and Gender Information Value Date Recorded Sex Assigned at Not on file Legal Sex Female 2:23 PM EST Gender Identity Not on file Sexual Orientation Not on file Last Filed Vital Signs Vital Sign Reading Time Taken Comments Blood Pressure 105/63 10/27/2023 5:02 PM EDT Pulse 76 10/27/2023 5:02 PM EDT Temperature 36.6 C (97.9 F) 10/27/2023 5:02 PM EDT Respiratory Rate 20 10/27/2023 5:02 PM EDT Oxygen Saturation 100% 10/27/2023 5:02 PM EDT Inhaled Oxygen Concentration - - Weight 65.8 kg (145 lb) 10/27/2023 5:02 PM EDT Height 160 cm (5' 2.99 ) 10/27/2023 5:02 PM EDT Body Mass Index 25.69 10/27/2023 5:02 PM EDT Plan of Treatment Health Maintenance Due Date Last Done Comments ALKALINE PHOSPHATASE LEVEL 1999 CREATININE LEVEL 1999 COVID-19 VACCINE (#1) 2004 DEPRESSION SCREENING 2011 SMOKING Hx and SMOKELESS TOB ACCO SCREENING 2012 HPV VACCINES (1 - 3-dose series) 2014 HIV ONE-TIME SCREENING (18-6 5 YEARS) 2017 PNEUMOCOCCAL VACCINES (0-49 years) (1 of 2 - PCV) 2018 PAP SMEAR 2020 INFLUENZA VACCINE (#1) 2024 Adult Td,Tdap Booster 08/27/2027 08/26/2017 HEPATITIS C SCREENING Completed 02/04/2022 HEPATITIS A VACCINES Aged Out No long er eligible based on patient's age to complete this topic HIB VACCINES Aged Out No longer eligi ble based on patient's age to complete this topic MENINGOCOCCAL VACCINES (ACWY) Aged Out No longer eligible based on patient's age to complete this topic MENINGOCOCCAL VACCINES (B) Aged Out N o longer eligible based on patient's age to complete this topic Medical Devices Not on file Insurance [facility] Care Teams Microsoft Bi Developer Relationship Specialty Start Date End Date Pcp, Unknown PCP - General 03/31/22 Additional Source Comments The information contained in this document represents components of the legal health record. It is not the complete legal health record.[facility]
[2025-01-21] MEDS: Lidocaine HCl 1%/Epi 1:100,000 10 ML VIAL INFILTRATI (22:35)
[2025-01-21] MEDS: Lidocaine/Racepinep/Tetracaine 3 ML GEL.PF.APP TOPICAL (22:39)
[2025-01-22 00:44] VITALS: BP 102/62; PULSE 82; RESP 18; TEMP 36.5; O2SAT 99
[2025-01-22 00:51] VITALS: BP 102/62; PULSE 82; RESP 18; TEMP 36.5; O2SAT 99
== END 2025-01-22 00:52 | disposition home or self-care (01) ==
PROVIDERS: Emergency Provider Emergency Medicine; PCP Dentist General Practice
DX: L72.9 Follicular cyst of the skin and subcutaneous tissue, unspecified (principal); R60.0 Localized edema
CPT/HCPCS: 10060; 99284; J2004

== ENCOUNTER 2025-02-09 20:47 | Emergency (ER) | payer OTHER, SELFPAY ==
[2025-02-09 20:52] VITALS: BP 113/59; PULSE 86; RESP 16; TEMP 36.8; O2SAT 97; BMI 25.0
--- OUTSIDE RECORDS SUMMARY | 2025-02-09 21:11 | XMS_ITS | Clinical Summary ---
Author Organization 175 [facility] Address [address] [place] [address] Phone Care Team Providers Care Warehouse Stock Clerk Name Role Phone Erik Davidson MD Primary Care Provider [phone] Allergies No known active allergies Medications lactulose [...] AM EDT Lab Draw Station - [address] [facility] [address] [place] [phone] Noninfective gastroenteritis and colitis, unspecified; Other ulcerative colitis without complication ([facility] V24, [facility] V28); Acute pain of both knees 12/08/2024 8:32 AM EDT - 12/08/2024 11:59 PM EDT Hospital Encounter [facility] [address] [place] [phone] Noninfective gastroenteritis and colitis, unspecified; Other ulcerative colitis without complication ([facility] V24, [facility] V28); Acute pain of both knees Discharge Disposition: Home or Self Care 12/07/2024 9:10 AM EDT Office Visit Gastroenterology [facility] 175 [facility] [address] [phone] Lacey Santamaria PA Other ulcerative colitis without complication ([facility] V24, [facility] V28) (Primary Dx); Noninfective gastroenteritis and colitis, unspecified; Acute pain of both knees 12/07/2024 Telephone Gastroenterology - [place] 175 [facility] [address] [phone] Vero Carpenter MA from Last 3 Months Immunizations Immunization Administration Dates Next Due HPV, Quadrivalent 01/27/2020,02/28/2019,01/21/20 19 Influenza, Unspecified 02/04/2022,01/27/2020,01/2019 [employer] SARS-CoV-2 COVID -19, vector-nr, rS-Ad26, preservative free [...] 2:20 PM EST Office Visit Gastroenterology - [address] [place] [address] [facility] [address] [place] [address] Lacey Santamaria PA [facility] [place] [address] Health Maintenance Due Date Last Done Comments [...] Other ulcerative colitis without complication (CMS/HCC V24, [facility] V28) Acute pain of both knees CBC [...] Other ulcerative colitis without complication (CMS/HCC V24, [facility] V28) Acute pain of both knees C-REACTIVE PROTEIN Routine 12/08/2024 8: 58 AM EDT Noninfective gastroenteritis and colitis, unspecified Other ulcerative colitis without complication ([facility] V24, [facility] V28) Acute pain of both knees XR KNEE 4+ VIEWS BILAT Routine 12/08/2024 8:44 AM EDT Noninfective gastroenteritis and colitis, unspecified Other ulcerative colitis without complication ([facility] V24, [facility] V28) Acute pain of both knees from Last 3 Months Results * (ABNORMAL) CBC auto differential (12/08/2024 8:58 AM EDT) Pathologist [facility] WBC 5.9 4.8 - 10.8 K/mcL LAB HEMETOLOGY METHOD 12/08/2024 9:34 AM [facility] RBC 5.00(H) 3.80 - 4.80 M/[facility] LAB HEMETOLOGY METHOD 12/08/2024 9:34 AM [facility] Hemoglobin 14.5 11.5 - 16.0 g/dL LAB HEMETOLOGY METHOD 12/08/2024 9:34 AM [facility] Hematocrit 42.2 35.0 - 47.0 % LAB HEMETOLOGY METHOD 12/08/2024 9:34 AM [facility] MCV 83.7 79.0 - 98.0 FL LAB HEMETOLOGY METHOD 12/08/2024 9:34 AM [facility] MCH 28.8 27.0 - 32.0 pcg LAB HEMETOLOGY METHOD 12/08/2024 9:34 AM [facility] MCHC 34.4 32.0 - 37.0 g/dL LAB HEMETOLOGY METHOD 12/08/2024 9:34 AM [facility] RDW 12.8 11.0 - 15.0 % LAB HEMETOLOGY METHOD 12/08/2024 9:34 AM [facility] Platelets 198 130 - 400 K/mcL LAB HEMETOLOGY METHOD 12/08/2024 9:34 AM [facility] LAB MPV 11.2(H) 7.0 - 11.0 FL LAB HEMETOLOGY METHOD 12/08/2024 9:34 AM [facility] NRBC 0.0 <1.0 % LAB HEMETOLOGY METHOD 12/08/2024 9:34 AM [facility] NRBC Absolute 0.00 <0.10 K/mcL LAB HEMETOLOGY METHOD 12/08/2024 9:34 AM [facility] Neutrophils Relative 60.3 % LAB HEMETOLOGY METHOD 12/08/2024 9:34 AM [facility] Lymphocytes Relative 30.0 % LAB HEMETOLOGY METHOD 12/08/2024 9:34 AM [facility] Monocytes Relative 8.2 % LAB HEMETOLOGY METHOD 12/08/2024 9:34 AM [facility] Eosinophils Relative 0.5 % LAB HEMETOLOGY METHOD 12/08/2024 9:34 AM [facility] Basophils Relative 0.7 % LAB HEMETOLOGY METHOD 12/08/2024 9:34 AM [facility] Immature Granulocytes Relative 0.3 % LAB HEMETOLOGY METHOD 12/08/2024 9:34 AM [facility] Neutrophils Absolute 3.53 1.50 - 7.00 K/mcL LAB HEMETOLOGY METHOD 12/08/2024 9:34 AM [facility] Lymphocytes Absolute 1.76 1.00 - 5.00 K/mcL LAB HEMETOLOGY METHOD 12/08/2024 9:34 AM [facility] Monocytes Absolute 0.48 0.20 - 1.00 K/mcL LAB HEMETOLOGY METHOD 12/08/2024 9:34 AM EDT [facility] Eosinophils Absolute 0.03 0.00 - 0.50 K/[facility] LAB HEMETOLOGY METHOD 12/08/2024 9:34 AM EDT [facility] Basophils Absolute 0.04 0.00 - 0.20 K/[facility] LAB HEMETOLOGY METHOD 12/08/2024 9:34 AM EDT [facility] Immature Granulocytes Absolute 0.02 0.00 - 0.03 K/[facility] LAB HEMETOLOGY METHOD 12/08/2024 9:34 AM EDT [facility] Blood Venous blood specimen / Unknown Venipuncture / Unknown 12/08/2024 8:58 AM EDT 12/08/2024 9:27 AM EDT Lacey COLINDR[facility] LAB BLOOD ORDERABLES Final Re sult Performing Organization Address City/[facility]/ZIP Co de Phone Number [facility] [address] [place] [address], [place] [phone] * Vitamin D 25 hydroxy (12/08/2024 8:58 AM EDT) [facility] Vit D, 25-Hydroxy 34.0 30.0 - 80.0 ng/mL LAB CHEMISTRY METHOD 12/08/2024 11:24 AM EDT [facility] Blood Venous blood specimen / Unknown Venipuncture / Unknown 12/08/2024 8:58 AM EDT 12/08/2024 9:27 AM EDT Lacey COLINDRES LAB BLOOD ORDERABLES Final Re sult [facility] [address] [place] [address], [place] [phone] * C-reactive protein (12/08/2024 8:58 AM EDT) [facility] C-Reactive Protein <0.29 <=0.50 mg/dL LAB CHEMISTRY METHOD 12/08/2024 10:19 AM T [facility] Blood Venous blood specimen / Unknown Venipuncture / Unknown 12/08/2024 8:58 AM EDT 12/08/2024 9:27 AM EDT Lacey COLINDRES LAB BLOOD ORDERABLES Final Re sult [facility] [address] [place] [address], * Comprehensive metabolic panel (12/08/2024 8:58 AM EDT) [facility] Sodium 137 133 - 145 mmol/L LAB CHEMISTRY METHOD 12/08/2024 10:46 AM [facility] Potassium 4.1 3.5 - 5.5 mmol/L LAB CHEMISTRY METHOD 12/08/2024 10:46 AM [facility] Chloride 105 96 - 110 mmol/L LAB CHEMISTRY METHOD 12/08/2024 10:46 AM [facility] CO2 27 21 - 32 mmol/L LAB CHEMISTRY METHOD 12/08/2024 10:46 AM [facility] Anion Gap 5 3 - 11 LAB CHEMISTRY METHOD 12/08/2024 10:46 AM [facility] Glucose 90 70 - 100 mg/dL LAB CHEMISTRY METHOD 12/08/2024 10:46 AM [facility] BUN 12 5 - 25 mg/dL LAB CHEMISTRY METHOD 12/08/2024 10:46 AM [facility] Creatinine 0.71 0.50 - 1.10 mg/dL LAB CHEMISTRY METHOD 12/08/2024 10:46 AM [facility] eGFR 121 >=60 mL/min/1. 73m2 LAB CHEMISTRY METHOD 12/08/2024 10:46 AM [facility] Comment:Calculation based on the Chronic Kidney Disease Epidemiology Collaboration (CKD-EPI) equation refit without adjustment for race. BUN/Creatinine Ratio 16.9 LAB CHEMISTRY METHOD 12/08/2024 10:46 AM [facility] Calcium 9.3 8.5 - 10.5 mg/dL LAB CHEMISTRY METHOD 12/08/2024 10:46 AM [facility] AST (SGOT) 13 10 - 42 unit/L LAB CHEMISTRY METHOD 12/08/2024 10:46 AM [facility] ALT (SGPT) 21 10 - 60 unit/L LAB CHEMISTRY METHOD 12/08/2024 10:46 AM [facility] Alkaline Phosphatase 49 42 - 121 unit/L LAB CHEMISTRY METHOD 12/08/2024 10:46 AM [facility] Total Protein 7.1 6.0 - 8.0 g/dL LAB CHEMISTRY METHOD 12/08/2024 10:46 AM [facility] Albumin 4.4 3.2 - 5.0 g/dL LAB CHEMISTRY METHOD 12/08/2024 10:46 AM [facility] Total Bilirubin 0.8 0.0 - 1.4 mg/dL LAB CHEMISTRY METHOD 12/08/2024 10:46 AM [facility] Comment:Results verified by repeat testing Blood Venous blood specimen / Unknown Venipuncture / Unknown 12/08/2024 8:58 AM EDT 12/08/2024 9:27 AM EDT us Lacey COLINDRES LAB BLOOD ORDERABLES Final Re sult [facility] [address] [place] [address], * XR Knee 4+ Views bilat (12/08/2024 8:44 AM EDT) Anatomical Region Laterality Modality Lower Extremities, Knee Bilateral [facility] 12/08/2024 8:48 AM EDT Impressions 12/08/2024 8:49 AM EDT Normal examination. Code 52372, 13177 -------- FINAL REPORT -------- Dictated By: Kota Feliz Dictated Date: 12/08/2024 08:48 ET Assigned Physician: Kota Feliz Reviewed and Electronically Signed By: Kota Feliz Signed Date: 12/08/2024 08:49 ET Workstation ID: [id number] Transcribed By: Self Edit Transcribed Date: 12/08/2024 [...] seen ineither knee. IMPRESSION: Normal examination. Code 30293, 53661 -------- FINAL REPORT -------- Dictated By: Kota Feliz Dictated Date: 12/08/2024 08:48 ET Assigned Physician: Kota Feliz Reviewed and Electronically Signed By: Kota Feliz Signed Date: 12/08/2024 08:49 ET Workstation ID: [id number] Transcribed By: Self Edit Transcribed Date: 12/08/2024 08:48 ET [facility]IN[facility] IMG XR PROCEDURES Final Resul t from Last 3 Months Insurance [employer] [facility] Care Teams Warehouse Stock Clerk Relationship Specialty Start Date End Date Erik Davidson MD [address] [place] [address] PCP - General Internal Medicine 03/16/18
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
[2025-02-09 22:48] VITALS: BP 113/59; PULSE 86; RESP 16; TEMP 36.8; O2SAT 97
[2025-02-09] MEDS: Diphth,Pertus(ACell),Tet Adult 0.5 ML SYRINGE IM (22:48)
== END 2025-02-09 22:52 | disposition home or self-care (01) ==
PROVIDERS: Emergency Provider Student in an Organized Health Care Education/Training Program; PCP Dentist General Practice
DX: S01.112A Laceration without foreign body of left eyelid and periocular area, initial encounter (principal); R51.9 Headache, unspecified; W27.8XXA Contact with other nonpowered hand tool, initial encounter; Y93.9 Activity, unspecified; Y92.9 Unspecified place or not applicable; Y99.9 Unspecified external cause status; Z23 Encounter for immunization
CPT/HCPCS: 90471; 90715; 99282; 99284